=== PATIENT | male | born 1980 | race Caucasian/White ===

== ENCOUNTER 2024-04-26 14:38 | Outpatient (CLI) | payer OTHER, SELFPAY | END 2024-04-26 14:39 | disposition home or self-care (01) | PROVIDERS: Visit Provider Family Medicine | DX: I10 Essential (primary) hypertension (principal); M25.572 Pain in left ankle and joints of left foot; Z13.6 Encounter for screening for cardiovascular disorders; Z83.2 Family history of diseases of the blood and blood-forming organs and certain disorders involving the immune mechanism | CPT/HCPCS: 80053; 80061; 81241; 84443 ==